=== PATIENT | female | born 1995 | race Hispanic/Latino ===

== ENCOUNTER 2023-07-10 13:26 | Emergency (ER) | payer SELFPAY ==
[2023-07-10 15:17] LABS: SARS-CoV-2 NAA Rapid Test Not Detected (NotDetected)
[2023-07-10] MEDS ORDERED: Ketorolac Tromethamine 30 MG/ML VIAL ONE (15:25)
[2023-07-10] MEDS ORDERED: Cyclobenzaprine 10 MG TAB ONE (15:25)
== END 2023-07-10 15:38 | disposition home or self-care (01) ==
LOC: ERS 13:26
DX: S39.012A Strain of muscle, fascia and tendon of lower back, initial encounter (principal); J10.1 Influenza due to other identified influenza virus with other respiratory manifestations; Z20.822 Contact with and (suspected) exposure to COVID-19; X58.XXXA Exposure to other specified factors, initial encounter
CPT/HCPCS: 71045; 96374; J1885